=== PATIENT | female | born 1955 | race Caucasian/White ===

== ENCOUNTER 2017-09-08 06:06 | Outpatient (CLI) | payer SELFPAY ==
[~2017-09-08] VITALS: Ht 175.3 cm; Wt 93.9 kg
[~2017-09-08 06:06] MED LIST: ALBU17AE3 IH; ALN70T PO; ASP325T PO; ATEN25TA PO; ATR20T PO; BUDE6HFA IH; CIPR500S2 PO; CLIN-80 PO; DICL500C PO; FOLI10PO5 PO; FOLIC ACID PO; FURO40TA4 PO; HYDR1TAB PO; LEVO125T PO; LEVO175T2 PO; LRT10T PO; METR500T PO; MULT-418 PO; OMEP-10 PO; SRTR100T PO; SULF-222 PO; TRZ100T PO; VITA150T PO
[2017-09-08] MEDS ORDERED: TRAZ-28 PO (12:02)
[2017-09-08] MEDS ORDERED: GABA-488 PO (12:02)
[2017-09-08] MEDS ORDERED: FOLI1TAB24 PO (12:02)
[2017-09-08] MEDS ORDERED: MULT-178 PO (12:02)
[2017-09-08] MEDS ORDERED: BUDE10.2 IH (12:02)
[2017-09-08] MEDS ORDERED: FURO40TA4 PO (12:02)
[2017-09-08] MEDS ORDERED: RT-ALBUINH IH (12:02)
[2017-09-08] MEDS ORDERED: ATOR40TA70 PO (12:02)
[2017-09-08] MEDS ORDERED: ATEN25TA PO (12:02)
[2017-09-08] MEDS ORDERED: VITA150T PO (12:02)
[2017-09-08] MEDS ORDERED: OMEP20TA7 PO (12:02)
[2017-09-08] MEDS ORDERED: LEVO150T6 PO (12:02)
[2017-09-08] MEDS ORDERED: SUCR1TAB PO (12:05)
[2017-09-08] MEDS ORDERED: BETA1TAB12 PO (12:05)
[2017-09-08] MEDS ORDERED: POTA-51 PO (12:05)
[2017-09-08] MEDS ORDERED: CALC-902 PO (12:05)
[2017-09-08] MEDS ORDERED: ASPI-586 PO (12:05)
== END 2017-09-08 12:07 ==
LOC: PREOP 06:06
PROVIDERS: ATTEND Surgery
DX: Z01.818 Encounter for other preprocedural examination (principal); K62.5 Hemorrhage of anus and rectum; K21.9 Gastro-esophageal reflux disease without esophagitis; Z80.0 Family history of malignant neoplasm of digestive organs; Z86.010 Personal history of colon polyps

== ENCOUNTER 2017-09-14 10:31 | Day surgery (SDC) | payer OTHER ==
[~2017-09-14] VITALS: Ht 175.3 cm; Wt 93.9 kg
[~2017-09-14 10:31] MED LIST changes: +ASPI-586 PO; +ATOR40TA70 PO; +BETA1TAB12 PO; +BUDE10.2 IH; +CALC-902 PO; +FOLI1TAB24 PO; +GABA-488 PO; +LEVO150T6 PO; +MULT-178 PO; +OMEP20TA7 PO; +POTA-51 PO; +RT-ALBUINH IH; +SUCR1TAB PO; +TRAZ-28 PO
--- OUTSIDE RECORDS SUMMARY | 2017-09-14 10:35 | XMS REPORT | Continuity of Care Document ---
Author Author [facility] Organization [facility] Address Unknown Phone Unavailable Allergies Active Description Code Type Severity Reaction Onset Reported/Identified Relationship to Patient Clinical Status Yes No Known Drug Allergies [id number] Drug Allergy Unknown N/A 05/19/2011 Medications There is no data. Problems Date Dx Coded Attending Type Code Diagnosis Diagnosed By 05/20/2011 Ot 244.9 HYPOTHYROIDISM NOS 05/20/2011 Ot 276.52 HYPOVOLEMIA 05/20/2011 Ot 305.1 TOBACCO USE DISORDER 05/20/2011 Ot 401.9 HYPERTENSION NOS 05/20/2011 Ot 491.9 CHRONIC BRONCHITIS NOS 05/20/2011 Ot 530.81 ESOPHAGEAL REFLUX 05/20/2011 Ot 562.11 DIVERTICULITIS COLON (W/O MENT OF HEMORR 05/20/2011 Ot V45.77 ACQRD ABSENCE OF GENITAL ORGANS 11/30/2012 CITLALI CALVO, LIVAN Wang Ot 214.8 LIPOMA NEC 12/03/2012 PAUL JOHNSON Ot 682.3 CELLULITIS OF ARM 12/03/2012 PAUL JOHNSON Ot 682.4 CELLULITIS OF HAND 12/03/2012 PAUL JOHNSON Ot 729.81 SWELLING OF LIMB 12/03/2012 PAUL JOHNSON Ot V45.89 POSTSURGICAL STATES NEC 12/04/2012 WANG CALVO, LUCILLE Garcia Ot V58.31 ENCOUNTER FOR CHANGE OR REMOVAL OF SURGI 02/08/2013 LIVAN GODWIN MD Ot 728.87 MUSCLE WEAKNESS (GENERALIZED) 02/08/2013 LIVAN GODWIN MD Ot V45.89 POSTSURGICAL STATES NEC 02/08/2013 LIVAN GODWIN MD Ot V57.21 ENCOUNTER FOR OCCUPATIONAL THERAPY 09/04/2014 LIVAN GODWIN MD Ot 782.2 09/04/2014 LIVAN GODWIN MD Ot 782.2 09/04/2014 LIVAN GODWIN MD Ot V72.63 09/04/2014 LIVAN GODWIN MD Ot V74.8 09/04/2014 FABIO VENCES APRN Ot V76.12 09/04/2014 FABIO VENCES APRN Ot 733.00 01/11/2016 LIVAN GODWIN MD Ot 782.2 LOCAL SUPRFICIAL SWELLNG 01/11/2016 LIVAN GODWIN MD Ot 782.2 LOCAL SUPRFICIAL SWELLNG 01/11/2016 LIVAN GODWIN MD Ot V72.63 PRE-PROCEDURAL LABORATORY EXAMINATION 01/11/2016 LIVAN GODWIN MD Ot V74.8 SCREEN-BACTERIAL DIS NEC 01/11/2016 FABIO VENCES APRN Ot V76.12 OT SCREEN MAMMO-MALIGN NEOPLASM OF TWYLA 01/11/2016 FABIO VENCES APRN Ot 733.00 OSTEOPOROSIS NOS Procedures There is no data. Results There is no data. Encounters ACCT No. Visit Date/Time Discharge Status Pt. Type Provider Facility Loc./Unit Complaint [id number] 09/08/2017 06:06:00 09/08/2017 23:59:59 CLS Outpatient LIVAN GODWIN MD [facility] PREOP COLONOSCOPY/EGD [id number] 01/11/2016 11:44:00 01/11/2016 23:59:59 CLS Outpatient YG MONTEZ MD [facility] CARD [id number] 09/16/2013 19:34:00 09/19/2013 11:15:00 DIS Inpatient [id number] 07/15/2013 08:58:00 07/15/2013 23:59:59 CLS Outpatient FABIO VENCES APRN [facility] RAD [id number] 07/14/2013 10:33:00 07/14/2013 23:59:59 CLS Outpatient FABIO VENCES APRN [facility] RAD [id number] 01/17/2013 10:35:00 02/08/2013 15:02:00 DIS Outpatient LIVAN GODWIN MD [facility] REHAB [id number] 12/04/2012 18:38:00 12/04/2012 19:10:00 DIS Emergency WANG CALVO, LUCILLE Garcia [facility] ER [id number] 12/03/2012 12:47:00 12/03/2012 18:17:00 DIS Emergency PAUL JOHNSON [facility] ER [id number] 11/30/2012 10:31:00 11/30/2012 16:57:00 DIS Outpatient LIVAN GODWIN MD [facility] SDC [id number] 11/26/2012 10:44:00 11/26/2012 23:59:59 CLS Outpatient LIVAN GODWIN MD [facility] PREOP [id number] 10/20/2012 10:51:00 10/20/2012 23:59:59 CLS Outpatient LIVAN GODWIN MD [facility] RAD [id number] 09/14/2017 10:15:00 PEN Preadmit LIVAN GODWIN MD [facility] ENDO RECTAL BLEEDING/GERD/HX POLYPS/FAMILY HX COLON CA [id number] 05/19/2011 15:34:00 Document Registration
[2017-09-14] MEDS ORDERED: NS IV 500 ML 500 ML ONE ×2 (10:50→12:15)
[2017-09-14 11:00] VITALS: BP 102/76
[2017-09-14] MEDS: NS IV 500 ML 500 ML IV PRN ×2 (11:00→12:40)
[2017-09-14] MEDS ORDERED: MIDAZOLAM 2 MG/2 ML (VERSED) VIAL ONE ×4 (11:49→12:46)
[2017-09-14] MEDS ORDERED: fentaNYL INJECTION 100 MCG/2 ML AMP ONE (11:50)
[2017-09-14] MEDS: fentaNYL INJECTION 100 MCG/2 ML AMP IVP PRN ×2 (12:25→12:37)
[2017-09-14] MEDS: MIDAZOLAM 2 MG/2 ML (VERSED) VIAL IVP PRN ×4 (12:27→12:40)
--- NOTE | 2017-09-14 12:30 | History & Physicial ---
History of Present Illness History of Present Illness Reason for visit/HPI to undergo an upper endoscopy regarding symptoms of reflux disease and concomitant colonoscopy to investigate rectal bleeding. Reports a personal history of polyps 10 years ago and a family history of colon cancer in her maternal cousins. Date of Admission 09/14/17 Date Seen by Provider: Sep 14, 2017 Time Seen by Provider: 12:29 I consulted on this patient on 09/14/17 12:28 Attending Physician Livan Godwin MD Admitting Physician Demetri Tay MD Consult Allergies and Home Medications Allergies Coded Allergies: No Known Drug Allergies (Unverified , 05/19/11) Home Medications Albuterol Sulfate 6.7 Gm Hfa.aer.ad, 2 PUFF IH Q6H PRN for SHORTNESS OF BREATH, (Reported) Aspirin 81 Mg Tablet.dr, 81 MG PO DAILY, (Reported) Atenolol 25 Mg Tablet, 25 MG PO BID, (Reported) Atorvastatin Calcium 40 Mg Tablet, 40 MG PO HS, (Reported) Beta-Carotene(A) W-C & E/Min 1 Each Tablet, 1 TAB PO DAILY, (Reported) Budesonide/Formoterol Fumarate 10.2 Gm Hfa.aer.ad, 2 PUFF IH BID, (Reported) Calcium Carbonate/Vitamin D3 1 Each Tablet, 1 TAB PO DAILY, (Reported) Folic Acid 1 Mg Tablet, 1 MG PO DAILY, (Reported) Furosemide 40 Mg Tablet, 40 MG PO DAILY, (Reported) Gabapentin 300 Mg Capsule, 300 MG PO HS, (Reported) Levothyroxine Sodium 150 Mcg Tablet, 150 MCG PO DAILY, (Reported) Omeprazole 20 Mg Tablet.dr, 20 MG PO DAILY, (Reported) Potassium Chloride 20 Meq Tablet.er, 20 MEQ PO DAILY, (Reported) Sucralfate 1 Gm Tablet, 1 GM PO DAILY, (Reported) Trazodone HCl 50 Mg Tablet, 100 MG PO HS, (Reported) take 2 (50mg) tabs Vitamin B Complex & Vit C No.4 150 Mg Tablet, 150 MG PO DAILY, (Reported) Patient Home Medication List Home Medication List Reviewed: Yes Past Lwzkksl-Cgtaep-Etpgin Hx Patient Social History Marrital Status: Employed/Student: retired Alcohol Use: Denies Use Recreational Drug Use: No Smoking Status: Current Everyday Smoker Type Used: Cigarettes Recent Foreign Travel: No Contact w/other who traveled: No Recent Hopitalizations: No Recent Infectious Disease Expo: No Immunizations Up To Date Tetanus Booster (TDap): Unknown Pediatric: No Seasonal Allergies Seasonal Allergies: Yes Surgeries Yes Appendectomy, Section, Gallbladder, Hysterectomy Reproductive System Hx Reproductive Disorders: No Female Reproductive Disorders: Denies ASSISTANT CREDIT MANAGER History: Hysterectomy Gastrointestinal Yes Gastroesophageal Reflux, Diverticulosis, Polyps Musculoskeletal Yes Osteoporosis, Arthritis Endocrine Endocrine Disorders: Hypothyroidsim HEENT Loss of Vision: Denies Hearing Impairment: Denies Cancer Cervical Psychosocial Behavioral Health Disorders: Anxiety Family Medical History Significant Family History: No Pertinent Family Hx Family Hx: Cancer 03 FATHER, Onset:Unknown Family history: Cardiovascular disease 03 FATHER, Onset:Unknown 03 MOTHER, Onset:Unknown Family history: Thyroid disorder 03 MOTHER, Onset:Unknown Tuberculosis 03 FATHER, Onset:Unknown Constitutional: no symptoms reported EENTM: no symptoms reported Respiratory: no symptoms reported Cardiovascular: no symptoms reported Gastrointestinal: see HPI Genitourinary: no symptoms reported Musculoskeletal: no symptoms reported Skin: no symptoms reported Psychiatric/Neurological: No Symptoms Reported Physical Exam Vital Signs Vital Signs - First Documented 09/14/17 11:00 Temp 99.3 Pulse 64 Resp 18 B/P (MAP) 102/76 (85) Pulse Ox 92 O2 Delivery Room Air Capillary Refill : General Appearance: No Apparent Distress Neck: Normal Inspection Respiratory: Lungs Clear Cardiovascular: Regular Rate, Rhythm Gastrointestinal: Non Tender, Soft Rectal: Deferred Extremity: Normal Inspection Neurologic/Psychiatric: Alert, Oriented x3 Skin: Warm/Dry Assessment/Plan Assessment and Plan lady with symptoms of reflux and a personal history of polyps. For EGD with colonoscopy Problems: Admission Diagnosis Admission Status: Other (Outpt Proc) LIVAN GODWIN MD Sep 14, 2017 12:30 pm
--- NOTE | 2017-09-14 12:31 | Conscious Sedation/ASA ---
Conscious Sedation Pre-Proced Time Reviewed: 12:30 ASA Class: 2 Airway Mallampati Classification: (wales appropriate class) I. II. III, IV Lungs Heart ASA score ASA 1: a normal healthy patient ASA 2: a patient with a mild systemic disease (mid diabetes, controlled hypertension, obesity ASA 3: a patient with a severe systemic disease that limits activity (angina , COPD, prior Myocardial infarction) ASA 4: a patient with an incapacitating disease that is a constant threat to life (CHF, renal failure) ASA 5: a moribund patient not expected to survive 24 hrs. (ruptured aneurysm) ASA 6: a declared brain patient whose organs are being harvested. For emergent operations, add the letter E after the classification Grade 2 Sedation Plan: Discussed options with patient/fam Note The patient is an appropriate candidate to undergo the planned procedure, sedation, and anesthesia. The patient immediately re-assessed prior to indication. LIVAN GODWIN MD Sep 14, 2017 12:31 pm
[2017-09-14 13:20] VITALS: BP 96/62
[2017-09-14] MEDS ORDERED: HURRICAINE EXT TUBE (BENZOCAINE) XX ONE (13:30)
[2017-09-14 13:50] VITALS: BP 102/74
--- NOTE | 2017-09-14 14:16 | Endo Procedure Record ---
Endo Procedure Report Date of Procedure Last Colonoscopy: Yes (10 YEARS AGO) Sep 14, 2017 Surgeon (s) LIVAN GODWIN MD Post Procedure/Op Diagnosis EGD: Esophagitis, gastric erosions and gastritis Colonoscopy: Multiple polyps. Sigmoid diverticulosis Procedure Performed EGD with antral biopsy for H. pylori Colonoscopy to cecum Snare polypectomy 5 Description of Procedure Anesthesia Type: Conscious Sedation Specimen(s) collected/removed colon polyps Description of the Procedure Indication for the procedures: This lady came in for an upper endoscopy to evaluate symptoms of reflux disease and for surveillance colonoscopy. In addition, she reported rectal bleeding and a positive family history of colon cancer Informed consent was obtained after reviewing the procedures in detail. Description of procedures: EGD/antral biopsy: She was placed in left lateral decubitus position and her vital signs were monitored. Conscious sedation was achieved using Versed and fentanyl. The flexible gastroscope was introduced down the esophagus, past the stomach, into the proximal duodenum. Findings: Esophagus: Hiatus hernia with grade 2 esophagitis. Stomach: Multiple distal gastric erosions and severe distal gastritis with found. Biopsy for H. pylori was obtained Duodenum: Normal She tolerated the procedure well and was turned around in preparation for colonoscopy. Impression: Symptoms of reflux disease. Esophagitis and gastric tic erosions. H. pylori status pending Colonoscopy/polypectomy: Digital rectal examination was unremarkable. The colonoscope was then introduced into the rectum and advanced all the way up to the cecum. The scope was then withdrawn slowly and the mucosa examined in a systematic fashion. Findings: 1. A total of 3 polyps, 2 mm each, adjacent to each other involving the mid sigmoid colon. These were snared and retrieved, being sent as one specimen 2. Quite severe sigmoid diverticulosis 3. 2 mm polyp at the descending colon that was snared and retrieved 4. 2 mm polyp at the proximal transverse colon that was snared and retrieved She tolerated the procedures well and was taken back to the nursing area in a stable condition. Impression: Previous history of polyps. In intermittent rectal bleeding. Multiple polyps excised. Recommend repeating 2 years. Copies To: HOLLY ASKEW MD,LIVAN Wang MD Sep 14, 2017 2:16 pm
--- NOTE | 2017-09-14 14:17 | Discharge Inst-Simple/Standard ---
Discharge Inst-Standard Discharge Medications New, Converted or Re-Newed RX: Other Patient Instructions/Follow Up Plan of Care/Instructions/FU: Repeat colonoscopy in 2 years. Follow up with her primary Activity as Tolerated: Yes Discharge Diet: No Restrictions LIVAN GODWIN MD Sep 14, 2017 2:17 pm
== END 2017-09-14 14:50 | disposition home or self-care (01) ==
LOC: ENDO 10:31
PROVIDERS: ATTEND Surgery
DX: K20.9 Esophagitis, unspecified (principal); D12.4 Benign neoplasm of descending colon; D12.3 Benign neoplasm of transverse colon; K63.5 Polyp of colon; K57.30 Diverticulosis of large intestine without perforation or abscess without bleeding; K25.9 Gastric ulcer, unspecified as acute or chronic, without hemorrhage or perforation; K29.70 Gastritis, unspecified, without bleeding; M81.0 Age-related osteoporosis without current pathological fracture; E03.9 Hypothyroidism, unspecified; F41.9 Anxiety disorder, unspecified; Z80.0 Family history of malignant neoplasm of digestive organs; F17.210 Nicotine dependence, cigarettes, uncomplicated; Z79.899 Other long term (current) drug therapy

== ENCOUNTER → 2017-10-14 | Outpatient (CLI) | payer OTHER ==
[~2017-10-14] MED LIST changes: +RT-ALBUTEROL SULF 2.5 MG/3 ML PRE-MIX VIAL INH ONE; +RT-ALBUTEROL SULF 2.5 MG/3 ML PRE-MIX VIAL ONE
== END ==
LOC: RT 12:51
PROVIDERS: ATTEND Nurse Practitioner Family
DX: J44.9 Chronic obstructive pulmonary disease, unspecified (principal); R06.09 Other forms of dyspnea; Z72.0 Tobacco use
CPT/HCPCS: 94060; 94726; 94729

== ENCOUNTER → 2017-10-28 | Outpatient (CLI) | payer OTHER ==
[~2017-10-28] MED LIST changes: -RT-ALBUTEROL SULF 2.5 MG/3 ML PRE-MIX VIAL INH ONE; -RT-ALBUTEROL SULF 2.5 MG/3 ML PRE-MIX VIAL ONE
--- NOTE | 2017-10-28 18:15 | Diagnostic Imaging Report ---
CLINICAL INDICATION: Patient with pain in the left breast. Patient also states baseline exam. Patient is tobacco user. EXAM: Chest x-ray PA and lateral views. COMPARISONS: None. FINDINGS: Lungs/pleura: There are slightly hyperinflated lungs, increased retrosternal clear space, and flattened hemidiaphragms which can be seen with COPD changes. Lungs are clear. There is no pneumothorax. There is no pleural effusion. Mediastinum: Unremarkable. Pulmonary vasculature: Unremarkable. Heart: Unremarkable. Bones/extrathoracic soft tissue: There are mildly hypertrophic degenerative osteophytes scattered throughout the thoracic spine. IMPRESSION: 1: There is no radiographic evidence of acute cardiopulmonary process. 2: COPD lung changes. Dictated by: Dictated on workstation # [id number]
== END ==
LOC: RAD 14:15
PROVIDERS: ATTEND Nurse Practitioner Family
DX: J44.9 Chronic obstructive pulmonary disease, unspecified (principal); N64.4 Mastodynia; Z72.0 Tobacco use
CPT/HCPCS: 71046

== ENCOUNTER → 2018-05-26 | Outpatient (CLI) | payer SELFPAY ==
[~2018-05-26] MED LIST changes: +TRAZ-189 PO; -TRAZ-28 PO
--- NOTE | 2018-05-26 10:56 | Diagnostic Imaging Report ---
EXAMINATION: CT low-dose lung cancer screening. INDICATION: 70+ pack year smoking history. COMPARISON: There are no prior CT chest examinations available for comparison. The plain film examination of the chest performed on 10/28/2017 noted chronic pulmonary changes but failed to show any evidence for an acute abnormality. FINDINGS: There is a 0.8 x 1.5 cm triangular soft tissue density in the left costophrenic angle (Image 257 of 303). This finding was not present on the prior CT abdomen/pelvis exam of 05/19/2011. I suspect this density is more likely due to chronic atelectasis/scar formation than to neoplasm. If further imaging is desired, then a PET/CT would be recommended. If the PET/CT exam is not performed, then a short-term (3 month) followup CT chest exam should be obtained. There is also a small 0.3 x 0.7 cm parenchymal density in the left apex (image 24 of 303). This finding is most likely benign. No other parenchymal lung nodule is identified. There is a faint patchy alveolar/interstitial infiltrate in the anterior aspect of the right middle lobe. This may well be chronic in nature. The possibility that this is related to mild acute pneumonia/atelectasis should also be considered. There are mild emphysematous changes involving both lungs. The heart size is within normal limits. Coronary artery calcifications are evident. The aorta is not abnormally dilated. There is no obvious mediastinal or hilar adenopathy. The thyroid gland was not well visualized. There is no definite breast mass identified. According to our records, the patient has not had a mammogram since 2013. If the patient has had a recent (within 1 year) mammogram elsewhere, then no further imaging would be necessary; however, if the patient has not had a recent mammogram, then mammography would be recommended for further study. The sections through the upper abdomen show that both the liver and spleen are prominent but similar to the prior study. The bone windows show no evidence for a fracture or for a destructive lesion. IMPRESSION: 1. There is a 0.8 x 1.5 cm parenchymal nodule in the left lung base. This finding is more likely due to chronic atelectasis/scar formation than to neoplasm. Recommendations as above. 2. There is also a subcentimeter nodule in the left upper lung. I suspect that this is benign. 3. There is a question of mild pneumonia/atelectasis involving the right middle lobe. Clinical followup is recommended. 4. There are chronic pulmonary changes evident. 5. There is coronary artery disease. 6. Both the liver and spleen are prominent but similar in appearance to the prior exam from 2011. LUNG-RADS CATEGORY: 4a. MODIFIER: OTHER SIGNIFICANT FINDINGS: Dictated by: Dictated on workstation # [id number]
== END ==
LOC: RAD 09:14
PROVIDERS: ATTEND Nurse Practitioner Family
DX: Z12.2 Encounter for screening for malignant neoplasm of respiratory organs (principal); I25.10 Atherosclerotic heart disease of native coronary artery without angina pectoris; J44.9 Chronic obstructive pulmonary disease, unspecified; J30.9 Allergic rhinitis, unspecified; R91.8 Other nonspecific abnormal finding of lung field; F17.210 Nicotine dependence, cigarettes, uncomplicated

== ENCOUNTER 2018-06-10 05:25 | Outpatient (CLI) | payer OTHER ==
[~2018-06-10] VITALS: Ht 175.3 cm; Wt 78.5 kg
[2018-06-10] MEDS ORDERED: CETI10TA20 PO (12:41)
[2018-06-10] MEDS ORDERED: TIOT18CA2 IH (12:41)
[2018-06-10] MEDS ORDERED: VITA1CAP PO (12:41)
[2018-06-10] MEDS ORDERED: FLUT9.9S NS (12:41)
== END 2018-06-10 12:42 | disposition home or self-care (01) ==
LOC: PREOP 05:25
PROVIDERS: ATTEND Internal Medicine Critical Care Medicine
DX: Z01.818 Encounter for other preprocedural examination (principal)

== ENCOUNTER 2018-06-17 06:47 | Day surgery (SDC) | payer OTHER ==
[~2018-06-17] VITALS: Ht 175.3 cm; Wt 78.5 kg
[~2018-06-17 06:47] MED LIST changes: +CETI10TA20 PO; +FLUT9.9S NS; +TIOT18CA2 IH; +VITA1CAP PO
[2018-06-17] MEDS ORDERED: LIDOCAINE PF 2% 5 ML (XYLOCAINE) VIAL INJ ONE (06:48)
[2018-06-17] MEDS ORDERED: LIDOCAINE 2% 20 ML (XYLOCAINE) VIAL INJ ONE (06:48)
[2018-06-17] MEDS ORDERED: LIDOCAINE PF 1% 2 ML AMP IJ ONE (06:48)
--- OUTSIDE RECORDS SUMMARY | 2018-06-17 06:53 | XMS REPORT | Continuity of Care Document ---
Author Author [facility] Organization [facility] Address Unknown Phone Unavailable Care Team Providers Care Clinical Nursing Professor Name Role Phone LIVAN GODWIN MD PP Insurance Providers Payer Name Policy Number Subscriber Name Relationship Self Pay Tawny Mejia 01 Self / Same As Patient Advance Directives Directive Response Recorded Date Advance Directives N 12/04/12 6:40pm Health Care Power of Watch Assembly Inspector N 12/03/12 1:10pm Organ Donor N 12/03/12 1:10pm Problems No Known Problems or Medical conditions. Family History History Response Recorded Date/Time Hx Family Cancer Y dad had lukemia 4:00pm Hx Family Cardiac Disorders Y mother has a fib 05/19/11 4:00pm Social History History Response Recorded Date/Time Alcohol Use Denies Use 12/04/12 6:40pm Recreational Drug Use N 12/04/12 6:40pm Allergies, Adverse Reactions, Alerts Allergen Type Severity Reaction Last Updated No Known Drug Allergies 05/19/11 Medications Medication Dose Units Route Sig Qty Days Trimethoprim/Sulfamethoxazole (Bactrim Ds) 1 Ea PO BID 10 Dicloxacillin Sodium 1 Each PO Q6HR 10 Acetaminophen/Hydrocodone Bitart (Vicodin 5-500 Tablet) 1 - 2 Each PO Q4HR PRN Vitamin B Complex & Vit C No.4 (Super B Complex) 150 Mg PO DAILY [Folic Acid] 1 Tab PO DAILY Albuterol (Proventil) 2 Puff IH Q4H PRN SOB Budesonide/Formoterol Fumarate (Symbicort 160-4.5 Mcg Inhaler) 2 Puff IH BID Trazodone HCl (Desyrel 100 Mg) 100 Mg PO HS Levothyroxine Sodium (Synthroid) 125 Mcg PO DAILY Aspirin (Aspirin 325 Mg Tab) 325 Mg PO DAILY Omeprazole (Prilosec 20 Mg) 20 Mg PO DAILY Multivitamin (Vitamin Brittney Chew) 1 Tab PO DAILY Atenolol (Tenormin 25 Mg) 25 Mg PO BID Furosemide 40 Mg PO DAILY Metronidazole (Flagyl 500 Mg) 1 Each PO TID 8 Ciprofloxacin (Cipro) 500 Mg PO BID 8 Vitamin B Complex & Vit C No.4 (Super B Complex) 150 Mg PO Sertraline HCl (Zoloft) 100 Mg PO DAILY Folic Acid 20 Gm PO DAILY Response Recorded Date/Time Status not known Unknown Results Test Date Result Interp. Ref. Range Alanine Aminotransferase (ALT/SGPT) May 20, 2011 4: 58am 29 U/L L 30-65 Albumin May 20, 2011 4:58am 2.7 G/ DL L 3.4-5.0 Alkaline Phosphatase May 20, 2011 4:58am 127 U/L N 50-136 Amylase Level May 20, 2011 4:58am 32 U/L N 25-115 Aspartate Amino Transf (AST/SGOT) May 20, 2011 4:58am 17 U/L N 15-37 BUN/Creatinine Ratio November 26, 2012 11:29am 9 - Basophils # (Auto) December 03, 2012 4:40pm 0.0 10^3/uL N 0.0-0.1 Basophils (%) (Auto) December 03, 2012 4:40pm 1 % N 0-10 Blood Urea Nitrogen November 26, 2012 11:29am 7 MG/DL N 7-18 C-Reactive Protein December 03, 2012 4:40pm 1.4 MG/DL H 0.2-0.9 Calcium Level November 26, 2012 11:29am 10.1 MG/DL N 8.5-10.1 Carbon Dioxide Level November 26, 2012 11:29am 30 MMOL/L N 21-32 Chloride Level November 26, 2012 11:29am 97 MMOL/L L 101-110 Creatinine November 26, 2012 11:29am 0.8 MG/ DL N 0.6-1.3 Eosinophils # (Auto) December 03, 2012 4:40pm 0.1 10^3/uL N 0.0-0.3 Eosinophils (%) (Auto) December 03, 2012 4:40pm 2 % N 0-10 Glucose Level November 26, 2012 11:29am 110 MG/DL H 74-106 Hematocrit December 03, 2012 4:40pm 44 % N 35-52 Hemoglobin December 03, 2012 4:40pm 15.4 G/ DL N 11.5-16.0 Lipase May 20, 2011 4:58am 67 U/L L 73-393 Lymphocytes # (Auto) December 03, 2012 4:40pm 1.8 X 10^3 N 1.0-4.0 Lymphocytes (%) (Auto) December 03, 2012 4:40pm 30 % N 12-44 Mean Corpuscular Hemoglobin December 03, 2012 4:40pm 31 PG N 25-34 Mean Corpuscular Hemoglobin Concent December 03, 2012 4:40pm 35 G/DL N 32-36 Mean Corpuscular Volume December 03, 2012 4:40pm 91 FL N 80-99 Mean Platelet Volume December 03, 2012 4:40pm 9.7 FL N 7.4-10.4 Monocytes # (Auto) December 03, 2012 4:40pm 0.5 X 10^3 N 0.0-1.0 Monocytes (%) (Auto) December 03, 2012 4:40pm 8 % N 0-12 Neutrophils # (Auto) December 03, 2012 4:40pm 3.5 X 10^3 N 1.8-7.8 Neutrophils (%) (Auto) December 03, 2012 4:40pm 58 % N 42-75 Platelet Count December 03, 2012 4:40pm 152 10^3/uL N 130-400 Potassium Level November 26, 2012 11:29am 3.4 MMOL/L L 3.6-5.0 Red Blood Count December 03, 2012 4:40pm 4.90 10^6/uL N 4.35-5.85 Red Cell Distribution Width December 03, 2012 4:40pm 13.2 % N 10.0-14.5 Sodium Level November 26, 2012 11:29am 133 MMOL/L L 135-145 Total Bilirubin May 20, 2011 4:58am 1.1 MG/DL H 0.0-1.0 Total Protein May 20, 2011 4:58am 6.7 G/DL N 6.4-8.2 Urine Amorphous Sediment May 19, 2011 12:31pm FEW UNRULY URATES H - Urine Bacteria May 19, 2011 12:31pm NEGATIVE - Urine Bilirubin May 19, 2011 12:31pm NEGATIVE - Urine Casts May 19, 2011 12:31pm NONE - Urine Clarity May 19, 2011 12:31pm CLEAR - Urine Color May 19, 2011 12:31pm YELLOW - Urine Crystals May 19, 2011 12:31pm NONE - Urine Culture Indicated May 19, 2011 12:31pm NO - Urine Glucose (UA) May 19, 2011 12:31pm NEGATIVE - Urine Ketones May 19, 2011 12:31pm NEGATIVE - Urine Leukocyte Esterase May 19, 2011 12:31pm TRACE H - Urine Mucus May 19, 2011 12:31pm NEGATIVE - Urine Nitrite May 19, 2011 12:31pm NEGATIVE - Urine Protein May 19, 2011 12:31pm NEGATIVE - Urine RBC May 19, 2011 12:31pm NONE /HPF - Urine Specific Mineral May 19, 2011 12:31pm 1.010 L - Urine Squamous Epithelial Cells May 19, 2011 12:31pm 2-5 - Urine Urobilinogen May 19, 2011 12:31pm 8 MG/DL H - Urine WBC May 19, 2011 12:31pm RARE /HPF - Urine pH May 19, 2011 12:31pm 7.0 - White Blood Count December 03, 2012 4:40pm 6.0 10^3/uL N 4.3-11.0 Estimat Glomerular Filtration Rate November 26, 2012 11:29am > 60 - Urine RBC (Auto) May 19, 2011 12:31pm NEGATIVE - Procedures Procedure Code Date EXC FOREARM SAM DEEP 3 CM/> [id number] MRSA Screen 11/26/12 Encounters Encounter Location Date/Time Departed Emergency Room [facility] 6:38pm Discharged Inpatient [facility] 3:34pm
--- OUTSIDE RECORDS SUMMARY | 2018-06-17 06:53 | XMS REPORT | Continuity of Care Document ---
Author Author [facility] Organization [facility] Address Unknown Phone Unavailable Care Team Providers Care Sheet Metal Worker Apprentice Name Role Phone HOLLY ASKEW MD PP Insurance Providers Payer Name Policy Number Subscriber Name Relationship Self Pay Tawny Mejia 01 Self / Same As Patient Advance Directives Directive Response Recorded Date Advance Directives N 12/03/12 1:10pm Health Care Power of Social Media Marketing Specialist N 12/03/12 1:10pm Organ Donor N 12/03/12 1:10pm Problems No Known Problems or Medical conditions. Family History History Response Recorded Date/Time Hx Family Cancer Y dad had lukemia 4:00pm Hx Family Cardiac Disorders Y mother has a fib 05/19/11 4:00pm Social History History Response Recorded Date/Time Alcohol Use Denies Use 12/03/12 1:10pm Recreational Drug Use N 12/03/12 1:10pm Allergies, Adverse Reactions, Alerts Allergen Type Severity [...] Recorded Date/Time Status not known Unknown Results No Known Relevant Diagnostic Tests, Laboratory Data and/or Discharge Summary. Procedures Procedure Code Date EXC FOREARM SAM DEEP 3 CM/> [id number] Encounters Encounter Location Date/Time Departed Emergency Room [facility] 12:47pm Discharged Inpatient [facility] 3:34pm
--- OUTSIDE RECORDS SUMMARY | 2018-06-17 06:53 | XMS REPORT | Continuity of Care Document ---
Author Author [facility] Organization [facility] Address Unknown Phone Unavailable Allergies Active Description Code Type Severity Reaction Onset Reported/Identified Relationship to Patient Clinical Status Yes No Known Drug Allergies [id number] Drug Allergy Unknown N/A 05/19/2011 Medications There [...] 09/04/2014 LIVAN GODWIN MD Ot V72.63 09/04/2014 CITLALI CALVO, LIVAN Wang Ot V74.8 09/04/2014 VANGIE, FABIO A FITNESS AND WELLNESS INSTRUCTOR Ot V76.12 09/04/2014 VANGIE, FABIO A FITNESS AND WELLNESS INSTRUCTOR Ot 733.00 01/11/2016 CITLALI CALVO, LIVAN Wang Ot 782.2 LOCAL SUPRFICIAL SWELLNG 01/11/2016 LIVAN GODWIN MD Ot 782.2 LOCAL SUPRFICIAL SWELLNG 01/11/2016 CITLALI CALVO, LIVAN Wang Ot V72.63 PRE-PROCEDURAL LABORATORY EXAMINATION 01/11/2016 CITLALI CALVO, LIVAN Wang Ot V74.8 SCREEN-BACTERIAL DIS NEC 01/11/2016 VANGIE, FABIO A FITNESS AND WELLNESS INSTRUCTOR Ot V76.12 OTH SCREEN MAMMO-MALIGN NEOPLASM OF [place] 01/11/2016 VANGIEFABIO CHEN FITNESS AND WELLNESS INSTRUCTOR Ot 733.00 OSTEOPOROSIS NOS 09/08/2017 LIVAN GODWIN MD Ot 782.2 LOCAL SUPRFICIAL SWELLNG 09/08/2017 LIVAN GODWIN MD Ot 782.2 LOCAL SUPRFICIAL SWELLNG 09/08/2017 LIVAN GODWIN MD Ot V72.63 PRE-PROCEDURAL LABORATORY EXAMINATION 09/08/2017 CITLALI CALVO, LIVAN Wang Ot V74.8 SCREEN-BACTERIAL DIS NEC 09/08/2017 VANGIE, FABIO A FITNESS AND WELLNESS INSTRUCTOR Ot V76.12 OTH SCREEN MAMMO-MALIGN NEOPLASM OF [place] 09/08/2017 FABIO VENCES FITNESS AND WELLNESS INSTRUCTOR Ot 733.00 OSTEOPOROSIS NOS 09/08/2017 MELIDA CALVO, YG Cormier Ot R07.9 CHEST PAIN, UNSPECIFIED 09/08/2017 LIVAN GODWIN MD Ot K21.9 GASTRO-ESOPHAGEAL REFLUX DISEASE WITHOUT 09/08/2017 LIVAN GODWIN MD Ot K62.5 HEMORRHAGE OF ANUS AND RECTUM 09/08/2017 LIVAN GODWIN MD Ot Z01.818 ENCOUNTER FOR OTHER PREPROCEDURAL EXAMIN 09/08/2017 LIVAN GODWIN MD Ot Z80.0 FAMILY HISTORY OF MALIGNANT NEOPLASM OF 09/08/2017 LIVAN GODWIN MD Ot Z86.010 PERSONAL HISTORY OF COLONIC POLYPS 09/14/2017 LIVAN GODWIN MD Ot 782.2 LOCAL SUPRFICIAL SWELLNG 09/14/2017 LIVAN GODWIN MD Ot 782.2 LOCAL SUPRFICIAL SWELLNG 09/14/2017 LIVAN GODWIN MD Ot V72.63 PRE-PROCEDURAL LABORATORY EXAMINATION 09/14/2017 LIVAN GODWIN MD Ot V74.8 SCREEN-BACTERIAL DIS NEC 09/14/2017 VANGIE, FABIO A FITNESS AND WELLNESS INSTRUCTOR Ot V76.12 OTH SCREEN MAMMO-MALIGN NEOPLASM OF [place] 09/14/2017 VANGIEFABIO CHEN FITNESS AND WELLNESS INSTRUCTOR Ot 733.00 OSTEOPOROSIS NOS 09/14/2017 MELIDA CALVO, YG Cormier Ot R07.9 CHEST PAIN, UNSPECIFIED 09/14/2017 LIVAN GODWIN MD Ot D12.3 BENIGN NEOPLASM OF TRANSVERSE COLON 09/14/2017 LIVAN GODWIN MD Ot D12.4 BENIGN NEOPLASM OF DESCENDING COLON 09/14/2017 LIVAN GODWIN MD Ot E03.9 HYPOTHYROIDISM, UNSPECIFIED 09/14/2017 LIVAN GODWIN MD Ot F17.210 NICOTINE DEPENDENCE, CIGARETTES, UNCOMPL 09/14/2017 LIVAN GODWIN MD Ot F41.9 ANXIETY DISORDER, UNSPECIFIED 09/14/2017 LIVAN GODWIN MD Ot K20.9 ESOPHAGITIS, UNSPECIFIED 09/14/2017 LIVAN GODWIN MD Ot K25.9 GASTRIC ULCER, UNSP ACUTE OR CHRONIC, 09/14/2017 LIVAN GODWIN MD Ot K29.70 GASTRITIS, UNSPECIFIED, WITHOUT BLEEDING 09/14/2017 LIVAN GODWIN MD Ot K57.30 DVRTCLOS OF LG INT W/O PERFORATION OR AB 09/14/2017 LIVAN GODWIN MD Ot K63.5 POLYP OF COLON 09/14/2017 LIVAN GODWIN MD Ot M81.0 AGE-RELATED OSTEOPOROSIS W/O CURRENT PAT 09/14/2017 LIVAN GODWIN MD Ot Z79.899 OTHER DRIVER/GUIDE (CURRENT) DRUG THERAPY 09/14/2017 LIVAN GODWIN MD Ot Z80.0 FAMILY HISTORY OF MALIGNANT NEOPLASM OF 09/16/2017 LIVAN GODWIN MD Ot D12.3 BENIGN NEOPLASM OF TRANSVERSE COLON 09/16/2017 GODWIN MD, LIVAN M Ot D12.4 BENIGN NEOPLASM OF DESCENDING COLON 09/16/2017 CITLALI CALVO, LIVAN Wang Ot E03.9 HYPOTHYROIDISM, UNSPECIFIED 09/16/2017 CITLALI CALVO, LIVAN Wang Ot F17.210 NICOTINE DEPENDENCE, CIGARETTES, UNCOMPL 09/16/2017 LIVAN GODWIN MD Ot F41.9 ANXIETY DISORDER, UNSPECIFIED 09/16/2017 LIVAN GODWIN MD Ot K20.9 ESOPHAGITIS, UNSPECIFIED 09/16/2017 LIVAN GODWIN MD Ot K25.9 GASTRIC ULCER, UNSP ACUTE OR CHRONIC, 09/16/2017 LIVAN GODWIN MD Ot K29.70 GASTRITIS, UNSPECIFIED, WITHOUT BLEEDING 09/16/2017 LIVAN GODWIN MD Ot K57.30 DVRTCLOS OF LG INT W/O PERFORATION OR AB 09/16/2017 LIVAN GODWIN MD Ot K63.5 POLYP OF COLON 09/16/2017 LIVAN GODWIN MD Ot M81.0 AGE-RELATED OSTEOPOROSIS W/O CURRENT PAT 09/16/2017 LIVAN GODWIN MD Ot Z79.899 OTHER DRIVER/GUIDE (CURRENT) DRUG THERAPY 09/16/2017 LIVAN GODWIN MD Ot Z80.0 FAMILY HISTORY OF MALIGNANT NEOPLASM OF 09/23/2017 CITLALI CALVO, LIVAN Wang Ot D12.3 BENIGN NEOPLASM OF [place] COLON 09/23/2017 LIVAN GODWIN MD Ot D12.4 BENIGN NEOPLASM OF DESCENDING COLON 09/23/2017 LIVAN GODWIN MD Ot E03.9 HYPOTHYROIDISM, UNSPECIFIED 09/23/2017 CITLALI CALVO, LIVAN Wang Ot F17.210 NICOTINE DEPENDENCE, CIGARETTES, UNCOMPL 09/23/2017 LIVAN GODWIN MD Ot F41.9 ANXIETY DISORDER, UNSPECIFIED 09/23/2017 LIVAN GODWIN MD Ot K20.9 ESOPHAGITIS, UNSPECIFIED 09/23/2017 LIVAN GODWIN MD Ot K25.9 GASTRIC ULCER, UNSP ACUTE OR CHRONIC, 09/23/2017 LIVAN GODWIN MD Ot K29.70 GASTRITIS, UNSPECIFIED, WITHOUT BLEEDING 09/23/2017 LIVAN GODWIN MD Ot K57.30 DVRTCLOS OF LG INT W/O PERFORATION OR AB 09/23/2017 LIVAN GODWIN MD Ot K63.5 POLYP OF COLON 09/23/2017 CITLALI CALVO, LIVAN Wang Ot M81.0 AGE-RELATED OSTEOPOROSIS W/O CURRENT PAT 09/23/2017 CITLALI CALVO, LIVAN Wang Ot Z79.899 OTHER CORRECTION (CURRENT) DRUG THERAPY 09/23/2017 CITLALI CALVO, LIVAN Wang Ot Z80.0 FAMILY HISTORY OF MALIGNANT NEOPLASM OF 10/15/2017 CYNTHIA SHIV E FITNESS AND WELLNESS INSTRUCTOR Ot J44.9 CHRONIC OBSTRUCTIVE PULMONARY DISEASE, U 10/15/2017 CYNTHIA SHIV E FITNESS AND WELLNESS INSTRUCTOR Ot R06.09 OTHER FORMS OF DYSPNEA 10/15/2017 CYNTHIA SHIV E FITNESS AND WELLNESS INSTRUCTOR Ot Z72.0 TOBACCO USE 10/15/2017 CYNTHIA SHIV E FITNESS AND WELLNESS INSTRUCTOR Ot J44.9 CHRONIC OBSTRUCTIVE PULMONARY DISEASE, U 10/15/2017 CYNTHIA SHIV E FITNESS AND WELLNESS INSTRUCTOR Ot R06.09 OTHER FORMS OF DYSPNEA 10/15/2017 CYNTHIA, SHIV E FITNESS AND WELLNESS INSTRUCTOR Ot Z72.0 TOBACCO USE 10/16/2017 CYNTHIADEBORAHSHIV E FITNESS AND WELLNESS INSTRUCTOR Ot J44.9 CHRONIC OBSTRUCTIVE PULMONARY DISEASE, U 10/16/2017 CYNTHIA, SHIV E FITNESS AND WELLNESS INSTRUCTOR Ot R06.09 OTHER FORMS OF DYSPNEA 10/16/2017 CYNTHIA, SHIV E FITNESS AND WELLNESS INSTRUCTOR Ot Z72.0 TOBACCO USE 10/29/2017 CYNTHIA SHIV E FITNESS AND WELLNESS INSTRUCTOR Ot J44.9 CHRONIC OBSTRUCTIVE PULMONARY DISEASE, U 10/29/2017 CYNTHIA SHIV E FITNESS AND WELLNESS INSTRUCTOR Ot N64.4 MASTODYNIA 10/29/2017 DEBORAH MARIEINE E FITNESS AND WELLNESS INSTRUCTOR Ot Z72.0 TOBACCO USE 11/24/2017 CITLALI CALVO, LIVAN Wang Ot 782.2 LOCAL SUPRFICIAL SWELLNG 11/24/2017 LIVAN GODWIN MD Ot 782.2 LOCAL SUPRFICIAL SWELLNG 11/24/2017 CITLALI CALVO, LIVAN Wang Ot V72.63 PRE-PROCEDURAL LABORATORY EXAMINATION 11/24/2017 CITLALI CALVO, LIVAN Wang Ot V74.8 SCREEN-BACTERIAL DIS NEC 11/24/2017 FABIO VENCES FITNESS AND WELLNESS INSTRUCTOR Ot V76.12 OTH SCREEN MAMMO-MALIGN NEOPLASM OF [place] 11/24/2017 FABIO VENCES FITNESS AND WELLNESS INSTRUCTOR Ot 733.00 OSTEOPOROSIS NOS 11/24/2017 MELIDA CALVO, BASHAR J Ot R07.9 CHEST PAIN, UNSPECIFIED 11/24/2017 CYNTHIADEBORAHSHIV E FITNESS AND WELLNESS INSTRUCTOR Ot J44.9 CHRONIC OBSTRUCTIVE PULMONARY DISEASE, U 11/24/2017 CYNTHIA, SHIV E FITNESS AND WELLNESS INSTRUCTOR Ot R06.09 OTHER FORMS OF DYSPNEA 11/24/2017 CYNTHIA, SHIV E FITNESS AND WELLNESS INSTRUCTOR Ot Z72.0 TOBACCO USE 11/24/2017 CYNTHIA SHIV E FITNESS AND WELLNESS INSTRUCTOR Ot J44.9 CHRONIC OBSTRUCTIVE PULMONARY DISEASE, U 11/24/2017 CYNTHIA, SHIV E FITNESS AND WELLNESS INSTRUCTOR Ot N64.4 MASTODYNIA 11/24/2017 CYNTHIA, SHIV E FITNESS AND WELLNESS INSTRUCTOR Ot Z72.0 TOBACCO USE 11/24/2017 CYNTHIA SHIV E FITNESS AND WELLNESS INSTRUCTOR Ot J44.9 CHRONIC OBSTRUCTIVE PULMONARY DISEASE, U 11/24/2017 CYNTHIA, SHIV E FITNESS AND WELLNESS INSTRUCTOR Ot R06.09 OTHER FORMS OF DYSPNEA 11/24/2017 CYNTHIA, SHIV E FITNESS AND WELLNESS INSTRUCTOR Ot Z72.0 TOBACCO USE 11/24/2017 CYNTHIA, SHIV E FITNESS AND WELLNESS INSTRUCTOR Ot J44.9 CHRONIC OBSTRUCTIVE PULMONARY DISEASE, U 11/24/2017 CYNTHIA SHIV E FITNESS AND WELLNESS INSTRUCTOR Ot N64.4 MASTODYNIA 11/24/2017 CYNTHIADEBORAHSHIV E FITNESS AND WELLNESS INSTRUCTOR Ot Z72.0 TOBACCO USE 11/25/2017 CITLALI CALVO, LIVAN Wang Ot D12.3 BENIGN NEOPLASM OF TRANSVERSE COLON 11/25/2017 CITLALI CALVO, LIVAN Wang Ot D12.4 BENIGN NEOPLASM OF DESCENDING COLON 11/25/2017 CITLALI CALVO, LIVAN Wang Ot E03.9 HYPOTHYROIDISM, UNSPECIFIED 11/25/2017 CITLALI CALVO, LIVAN Wang Ot F17.210 NICOTINE DEPENDENCE, CIGARETTES, UNCOMPL 11/25/2017 CITLALI CALVO, LIVAN Wang Ot F41.9 ANXIETY DISORDER, UNSPECIFIED 11/25/2017 CITLALI CALVO, LIVAN Wang Ot K20.9 ESOPHAGITIS, UNSPECIFIED 11/25/2017 CITLALI CALVO, LIVAN Wang Ot K25.9 GASTRIC ULCER, UNSP ACUTE OR CHRONIC, 11/25/2017 CITLALI CALVO, LIVAN Wang Ot K29.70 GASTRITIS, UNSPECIFIED, WITHOUT BLEEDING 11/25/2017 CITLALI CALVO, LIVAN Wang Ot K57.30 DVRTCLOS OF LG INT W/O PERFORATION OR AB 11/25/2017 CITLALI CALVO, LIVAN Wang Ot K63.5 POLYP OF COLON 11/25/2017 CITLALI CALVO, LIVAN Wang Ot M81.0 AGE-RELATED OSTEOPOROSIS W/O CURRENT PAT 11/25/2017 CITLALI CALVO, LIVAN Wang Ot Z79.899 OTHER CORRECTION (CURRENT) DRUG THERAPY 11/25/2017 CITLALI CALVO, LIVAN Wang Ot Z80.0 FAMILY HISTORY OF MALIGNANT NEOPLASM OF 11/25/2017 SHIV MARIE FITNESS AND WELLNESS INSTRUCTOR Ot J44.9 CHRONIC OBSTRUCTIVE PULMONARY DISEASE, U 11/25/2017 SHIV MARIE FITNESS AND WELLNESS INSTRUCTOR Ot N64.4 MASTODYNIA 11/25/2017 SHIV MARIE FITNESS AND WELLNESS INSTRUCTOR Ot Z72.0 TOBACCO USE 05/27/2018 SHIV MARIE FITNESS AND WELLNESS INSTRUCTOR Ot F17.210 NICOTINE DEPENDENCE, CIGARETTES, UNCOMPL 05/27/2018 SHIV MARIE FITNESS AND WELLNESS INSTRUCTOR Ot I25.10 ATHSCL HEART DISEASE OF [place] CORONARY 05/27/2018 SHIV MARIE FITNESS AND WELLNESS INSTRUCTOR Ot J30.9 ALLERGIC RHINITIS, UNSPECIFIED 05/27/2018 SHIV MARIE FITNESS AND WELLNESS INSTRUCTOR Ot J44.9 CHRONIC OBSTRUCTIVE PULMONARY DISEASE, U 05/27/2018 SHIV MARIE FITNESS AND WELLNESS INSTRUCTOR Ot R91.8 OTHER NONSPECIFIC ABNORMAL FINDING OF [place] 05/27/2018 SHIV MARIE FITNESS AND WELLNESS INSTRUCTOR Ot Z12.2 ENCNTR SCREEN FOR MALIGNANT NEOPLASM OF 06/04/2018 FABIO VENCES FITNESS AND WELLNESS INSTRUCTOR Ot V76.12 OTH SCREEN MAMMO-MALIGN NEOPLASM OF [place] 06/04/2018 FABIO VENCES A FITNESS AND WELLNESS INSTRUCTOR Ot 733.00 OSTEOPOROSIS NOS 06/04/2018 MELIAD CALVO, YG Cormier Ot R07.9 CHEST PAIN, UNSPECIFIED 06/04/2018 SHIV MARIE FITNESS AND WELLNESS INSTRUCTOR Ot J44.9 CHRONIC OBSTRUCTIVE PULMONARY DISEASE, U 06/04/2018 SHIV MARIE FITNESS AND WELLNESS INSTRUCTOR Ot R06.09 OTHER FORMS OF DYSPNEA 06/04/2018 SHIV MARIE FITNESS AND WELLNESS INSTRUCTOR Ot Z72.0 TOBACCO USE 06/04/2018 SHIV MARIE FITNESS AND WELLNESS INSTRUCTOR Ot J44.9 CHRONIC OBSTRUCTIVE PULMONARY DISEASE, U 06/04/2018 SHIV MARIE FITNESS AND WELLNESS INSTRUCTOR Ot N64.4 MASTODYNIA 06/04/2018 SHIV MARIE FITNESS AND WELLNESS INSTRUCTOR Ot Z72.0 TOBACCO USE 06/04/2018 SHIV MARIE APRN Ot F17.210 NICOTINE DEPENDENCE, CIGARETTES, UNCOMPL 06/04/2018 SHIV MARIE APRN Ot I25.10 ATHSCL HEART DISEASE OF [place] CORONARY 06/04/2018 SHIV MARIE APRN Ot J30.9 ALLERGIC RHINITIS, UNSPECIFIED 06/04/2018 SHIV MARIE APRN Ot J44.9 CHRONIC OBSTRUCTIVE PULMONARY DISEASE, U 06/04/2018 SHIV MARIE APRN Ot R91.8 OTHER NONSPECIFIC ABNORMAL FINDING OF [place] 06/04/2018 SHIV MARIE APRN Ot Z12.2 ENCNTR SCREEN FOR MALIGNANT NEOPLASM OF 06/11/2018 ROGER SORIA DO Ot Z01.818 ENCOUNTER FOR OTHER PREPROCEDURAL EXAMIN 06/11/2018 ROGER SORIA DO Ot Z01.818 ENCOUNTER FOR OTHER PREPROCEDURAL EXAMIN Procedures There is no data. Results There is no data. Encounters ACCT No. Visit Date/Time Discharge Status Pt. Type Provider Facility Loc./Unit Complaint [id number] 06/10/2018 05:25:00 06/10/2018 12:42:00 DIS Outpatient ROGER SORIA DO [facility] PREOP BRONCHOSCOPY [id number] 05/26/2018 09:14:00 05/26/2018 23:59:59 CLS Outpatient SHIV MARIE APRN [facility] RAD COPD,CHRONIC BRONCHITIS,DYSPNEA ON EXERTION [id number] 10/28/2017 14:15:00 10/28/2017 23:59:59 CLS Outpatient SHIV MARIE APRN [facility] RAD J44.9 R06.09 Z72.0 [id number] 10/14/2017 12:51:00 10/14/2017 23:59:59 CLS Outpatient SHIV MARIE APRN [facility] RT J44.9 COPD [id number] 09/14/2017 10:31:00 09/14/2017 14:50:00 DIS Outpatient CITLALI CALVO, LIVAN Wang [facility] ENDO RECTAL BLEEDING/GERD /HX POLYPS/FAMILY HX COLON CA [id number] 09/08/2017 06:06:00 09/08/2017 12:07:00 DIS Outpatient LIVAN GODWIN MD [facility] PREOP COLONOSCOPY/EGD [id number] 01/11/2016 11:44:00 01/11/2016 23:59:59 CLS Outpatient YG MONTEZ MD [facility] CARD CHEST PAIN,UNSPECIFIED TYPE [id number] 09/16/2013 19:34:00 09/19/2013 11:15:00 DIS Inpatient [id number] 07/15/2013 08:58:00 07/15/2013 23:59:59 CLS Outpatient FABIO VENCES APRN [facility] RAD OSTEOPENIA [id number] 07/14/2013 10:33:00 07/14/2013 23:59:59 CLS Outpatient FABIO VENCES APRN [facility] RAD SCREENING [id number] 01/17/2013 10:35:00 02/08/2013 15:02:00 DIS Outpatient LIVAN GODWIN MD [facility] REHAB LEFT POST OPERATIVE WEAKNESS OF FINGERS [id number] 12/04/2012 18:38:00 12/04/2012 19:10:00 DIS Emergency LUCILLE PIÑA MD [facility] ER POST OP WOUND CHECK [id number] 12/03/2012 12:47:00 12/03/2012 18:17:00 DIS Emergency PAUL JOHNSON [facility] ER POST OP ARM SWELLING/ FINGERS NOT MOVING [id number] 11/30/2012 10:31:00 11/30/2012 16:57:00 DIS Outpatient LIVAN GODWIN MD [facility] SDC LUMP LEFT FOREARM [id number] 11/26/2012 10:44:00 11/26/2012 23:59:59 CLS Outpatient LIVAN GODWIN MD [facility] PREOP LUMP LEFT FOREARM [id number] 10/20/2012 10:51:00 10/20/2012 23:59:59 CLS Outpatient LIVAN GODWIN MD [facility] RAD FOREARM MASS [id number] 06/17/2018 07:30:00 PEN Preadmit ROGER SORIA DO [facility] ENDO DYSPNEA/COPD/LUNG NODULE/CHRONIC BRONCHITIS [id number] 05/19/2011 15:34:00 Document Registration
--- OUTSIDE RECORDS SUMMARY | 2018-06-17 06:53 | XMS REPORT | Continuity of Care Document ---
Author Author [facility] Organization [facility] Address Unknown Phone Unavailable Care Team Providers Care Events And Promotions Assistant Name Role Phone HOLLY ASKEW MD PP Insurance Providers Payer Name Policy Number Subscriber Name Relationship Self Pay Tawny Mejia 01 Self / Same As Patient Advance Directives Directive Response Recorded Date Advance Directives N 12/04/12 6:40pm Health Care Power of Drapery Estimator N 12/03/12 1:10pm Organ Donor N 12/03/12 [...] 2011 12:31pm NONE /HPF - Urine Specific [place] May 19, 2011 12:31pm 1.010 L - [...] Date EXC FOREARM SAM DEEP 3 CM/> [id number] MRSA Screen 11/26/12 Encounters Encounter Location Date/Time Registered Emergency Room [facility] 12/04/12 6:38pm Departed Emergency Room [facility] 12:47pm Discharged Inpatient [facility] 3:34pm
--- OUTSIDE RECORDS SUMMARY | 2018-06-17 06:53 | XMS REPORT | Continuity of Care Document ---
Author Author [facility] Organization [facility] Address Unknown Phone Unavailable Care Team Providers Care Network Liaison Name Role Phone HOLLY ASKEW MD PP Insurance Providers Payer Name Policy Number Subscriber Name Relationship Self Pay Tawny Mejia 01 Self / Same As Patient Advance Directives Directive Response Recorded Date Advance Directives N 11/30/12 11:00am Health Care Power of Installation Tech N 11/30/12 11:00am Organ Donor N 11/30/12 11:00am Problems No Known Problems or Medical conditions. Family History History Response Recorded Date/Time Hx Family Cancer Y dad had lukemia 4:00pm Allergies, Adverse Reactions, Alerts Allergen Type Severity Reaction Last Updated No Known Drug Allergies 05/19/11 Medications Medication Dose Units Route Sig Qty Days Acetaminophen/Hydrocodone Bitart (Vicodin 5-500 Tablet) 1 - [...] 2012 11:29am 9 - Basophils # (Auto) May 20, 2011 4:58am 0.1 10^3/uL N 0.0-0.1 Basophils (%) (Auto) May 20, 2011 4:58am 1 % N 0-10 Blood Urea Nitrogen November 26, 2012 11:29am 7 MG/DL N 7-18 C-Reactive Protein May 20, 2011 4:58am 6.2 MG/DL H 0.2-0.9 Calcium Level November 26, 2012 11:29am 10.1 MG/DL N 8.5-10.1 Carbon Dioxide Level November 26, 2012 11:29am 30 MMOL/L N 21-32 Chloride Level November 26, 2012 11:29am 97 MMOL/L L 101-110 Creatinine November 26, 2012 11:29am 0.8 MG/ DL N 0.6-1.3 Eosinophils # (Auto) May 20, 2011 4:58am 0.2 10^3/uL N 0.0-0.3 Eosinophils (%) (Auto) May 20, 2011 4:58am 2 % N 0-10 Glucose Level November 26, 2012 11:29am 110 MG/DL H 74-106 Hematocrit May 20, 2011 4:58am 43 % N 35-52 Hemoglobin May 20, 2011 4:58am 14.7 G/DL N 11.5-16.0 Lipase May 20, 2011 4:58am 67 U/L L 73-393 Lymphocytes # (Auto) May 20, 2011 4:58am 2.0 X 10^3 N 1.0-4.0 Lymphocytes (%) (Auto) May 20, 2011 4:58am 24 % N 12-44 Mean Corpuscular Hemoglobin May 20, 2011 4:58am 32 PG N 25-34 Mean Corpuscular Hemoglobin Concent May 20, 2011 4: 58am 34 G/DL N 32-36 Mean Corpuscular Volume May 20, 2011 4:58am 93 FL N 80-99 Mean Platelet Volume May 20, 2011 4:58am 10.3 FL N 7.4-10.4 Monocytes # (Auto) May 20, 2011 4:58am 0.9 X 10^3 N 0.0-1.0 Monocytes (%) (Auto) May 20, 2011 4:58am 10 % N 0-12 Neutrophils # (Auto) May 20, 2011 4:58am 5.3 X 10^3 N 1.8-7.8 Neutrophils (%) (Auto) May 20, 2011 4:58am 63 % N 42-75 Platelet Count May 20, 2011 4:58am 135 10^3/uL N 130-400 Potassium Level November 26, 2012 11:29am 3.4 MMOL/L L 3.6-5.0 Red Blood Count May 20, 2011 4:58am 4.61 10^6/uL N 4.35-5.85 Red Cell Distribution Width May 20, 2011 4:58am 14.0 % N 10.0-14.5 Sodium Level November 26, [...] 2011 12:31pm NONE /HPF - Urine Specific [place] May 19, 2011 12:31pm 1.010 L - Urine Squamous Epithelial Cells May 19, 2011 12:31pm 2-5 - Urine Urobilinogen May 19, 2011 12:31pm 8 MG/DL H - Urine WBC May 19, 2011 12:31pm RARE /HPF - Urine pH May 19, 2011 12:31pm 7.0 - White Blood Count May 20, 2011 4:58am 8.4 10^3/uL N 4.3-11.0 Estimat Glomerular Filtration Rate November 26, 2012 11:29am > 60 - Urine RBC (Auto) May 19, 2011 12:31pm NEGATIVE - Procedures Procedure Code Date MRSA Screen 11/26/12 Encounters Encounter Location Date/Time Discharged Inpatient [facility] 3:34pm
[2018-06-17] MEDS ORDERED: NS IV 500 ML 500 ML IV PRN (07:06)
[2018-06-17] MEDS ORDERED: NS IV 500 ML 500 ML ONE (07:09)
[2018-06-17] MEDS ORDERED: MIDAZOLAM 2 MG/2 ML (VERSED) VIAL IVP ONE (07:15)
[2018-06-17] MEDS ORDERED: fentaNYL INJECTION 100 MCG/2 ML AMP IVP ONE (07:15)
[2018-06-17 07:25] VITALS: BP 100/67
--- NOTE | 2018-06-17 07:26 | Progress Note-Pre Operative ---
Pre-Operative Progress Note H&P Reviewed The H&P was reviewed, patient examined and no changes noted. Time Seen by Provider: 07:26 Date H&P Reviewed: Jun 17, 2018 Time H&P Reviewed: 07:26 Pre-Operative Diagnosis: lung nodule ROGER SORIA DO Jun 17, 2018 07:26
--- NOTE | 2018-06-17 07:27 | Pre-Op Note & Conscious Sedat ---
Pre-Operative Progress Note H&P Reviewed The H&P was reviewed, patient examined and no changes noted. Date H&P Reviewed: Jun 17, 2018 Time H&P Reviewed: 07:26 Conscious Sedation Pre-Proced Time 07:26 ASA Score 3 For ASA 3 and 4: Consider anesthesia and medical clearance. Also, for patients with a history of failed moderate sedation consider anesthesia. Airway Lungs Heart ASA score ASA 1: a normal healthy patient ASA 2: a patient with a mild systemic disease (mid diabetes, controlled hypertension, obesity ASA 3: a patient with a severe systemic disease that limits activity (angina , COPD, prior Myocardial infarction) ASA 4: a patient with an incapacitating disease that is a constant threat to life (CHF, renal failure) ASA 5: a moribund patient not expected to survive 24 hrs. (ruptured aneurysm) ASA 6: a declared brain patient whose organs are being harvested. For emergent operations, add the letter E after the classification Mallampati Classification Grade 3 Sedation Plan Analgesia, Amnesia, Plan communicated to team members, Discussed options with patient/fam, Discussed risks with patient/fam The patient is an appropriate candidate to undergo the planned procedure, sedation, and anesthesia. The patient immediately re-assessed prior to indication. ROGER SORIA DO Jun 17, 2018 07:27
--- NOTE | 2018-06-17 07:27 | Pulmonary Procedures ---
Pulmonary Procedures Date of Procedure Date of Service: Jun 17, 2018 Bronch Bronchoscopy with bronchoalveolar lavage (BAL), transbronchial washes and, brushes. Preop DX lung mass Postop DX: same Complications: none After informed consent obtained and formal time out pt was sedated using Fentanyl and Versed. Bronchoscope was advanced through the nare and vocal cords. 1% lidocaine was used to anesthetize vocal cords, epiglottis, bimal, and left/right main stem bronchus. An anatomical tour was undertaken down to the segmental bronchi bilaterally. No endobronchial lesions noted. From the RML a bronchoalveolar lavage (BAL), transbronchial washes and, brushes were obtained. Pt tolerated procedure well. No complications noted. Stat CXR is pending. ROGER SORIA DO Jun 17, 2018 07:27
[2018-06-17] MEDS ORDERED: fentaNYL INJECTION 100 MCG/2 ML AMP ONE (07:38)
[2018-06-17] MEDS ORDERED: MIDAZOLAM 2 MG/2 ML (VERSED) VIAL ONE ×3 (07:38)
[2018-06-17 08:20] VITALS: BP 98/67
--- NOTE | 2018-06-17 08:46 | Diagnostic Imaging Report ---
INDICATION: Followup post bronchoscopy Portable chest 8:34 AM There is a pleural-based opacity at the left lateral lung base measuring 4 cm in diameter with a depth of 1.5 cm. Lungs otherwise clear. There is no effusion or pneumothorax. IMPRESSION: Pleural-based appearing mass left lateral lung base, new since 10/28/2017. Dictated by: Dictated on workstation # [id number]
[2018-06-17 09:00] VITALS: BP 95/67
--- NOTE | 2018-06-17 09:05 | Diagnostic Imaging Report ---
Indication: Bronchoscopy. Impression: 17.2 seconds of fluoroscopy and single digital image during the procedure for localization was used by Dr. Capps during bronchoscopy. Dictated by: Dictated on workstation # [id number]
[2018-06-17 09:10] VITALS: BP 95/67
[2018-06-17 10:46] LABS: BF OTHER CELLS 80 %; BODY FLUID APPEARENCE MOD CLDY; BODY FLUID COLOR COLORLESS; BODY FLUID SOURCE BRONCHIAL LAVAGE; LYMPHOCYTES,BODY FLUID 14 %
== END 2018-06-17 09:15 | disposition home or self-care (01) ==
LOC: ENDO 06:47
PROVIDERS: ATTEND Internal Medicine Critical Care Medicine
DX: R91.8 Other nonspecific abnormal finding of lung field (principal); J44.9 Chronic obstructive pulmonary disease, unspecified; F17.210 Nicotine dependence, cigarettes, uncomplicated; J30.9 Allergic rhinitis, unspecified; R06.09 Other forms of dyspnea; Z79.82 Long term (current) use of aspirin; Z79.899 Other long term (current) drug therapy
CPT/HCPCS: 71045; 87015; 87070; 87077; 87101; 87116; 87184; 87205; 87206; 88112; 88305; 88312; 89051; 94640

== ENCOUNTER → 2020-05-25 | Outpatient (CLI) | payer MEDICARE, OTHER ==
[~2020-05-25] MED LIST changes: -CETI10TA20 PO; +CETI10TA49 PO; -TRAZ-189 PO; +TRZ50T PO
--- NOTE | 2020-05-25 12:55 | Consultation - Surgery ---
History of Present Illness History of Present Illness Patient Consulted On(tank/time) 05/25/20 12:26 Time Seen by Provider: 10:18 History of Present Illness Surgery asked to consult regarding Liver CA, Ascites and assess for paracentesis. HPI: Pt is a 65 yo female with advanced liver CA. She has had increasing abdominal distention, fatigue and shortness of breath. Today she complained to me of some chest pressure and stated she has no energy. She relates that she weighed around 144lbs last week and now weighs 170lbs. She also has some portal vein thrombosis and has been on Coumadin. She had an INR drawn last week which was apparently 14 and they had trouble getting repeat labs. She stopped the Coumadin on Thursday and was given some Vitamin K. She has had some increasing abdominal pain; but not really bad. Allergies and Home Medications Allergies Coded Allergies: No Known Drug Allergies (Unverified , 05/19/11) Home Medications Albuterol Sulfate 6.7 Gm Hfa.aer.ad, 2 PUFF IH Q6H PRN for SHORTNESS OF BREATH, (Reported) Aspirin 81 Mg Tablet.dr, 81 MG PO DAILY, (Reported) Atenolol 25 Mg Tablet, 25 MG PO BID, (Reported) Atorvastatin Calcium 40 Mg Tablet, 40 MG PO HS, (Reported) Beta-Carotene(A) W-C & E/Min 1 Each Tablet, 1 TAB PO DAILY, (Reported) Budesonide/Formoterol Fumarate 10.2 Gm Hfa.aer.ad, 2 PUFF IH BID, (Reported) Calcium Carbonate/Vitamin D3 1 Each Tablet, 1 TAB PO DAILY, (Reported) Cetirizine HCl 10 Mg Tablet, 10 MG PO DAILY, (Reported) Fluticasone Propionate 9.9 Ml [place].susp, 1 SPRAY NS DAILY, (Reported) 1 SPRAY EACH NARE DAILY Folic Acid 1 Mg Tablet, 1 MG PO DAILY, (Reported) Furosemide 40 Mg Tablet, 40 MG PO DAILY, (Reported) Gabapentin 300 Mg Capsule, 300 MG PO HS, (Reported) Levothyroxine Sodium 150 Mcg Tablet, 150 MCG PO DAILY, (Reported) Omeprazole 20 Mg Tablet.dr, 20 MG PO DAILY, (Reported) Potassium Chloride 20 Meq Tablet.er, 20 MEQ PO DAILY, (Reported) Sucralfate 1 Gm Tablet, 1 GM PO DAILY, (Reported) Tiotropium [place] 1 Inh Aerp, 1 INH IH DAILY, (Reported) Trazodone HCl 50 Mg Tablet, 100 MG PO HS, (Reported) take 2 (50mg) tabs Vitamin B Complex 1 Each Capsule, 1 EACH PO DAILY, (Reported) Patient Home Medication List Home Medication List Reviewed: Yes Past Ynxumpk-Ympomj-Uncmrb Hx Patient Social History Alcohol Use: Denies Use Smoking Status: Current Everyday Smoker Type Used: Cigarettes 2nd Hand Smoke Exposure: Yes Recent Foreign Travel: No Contact w/Someone Who Travel: No Recent Hopitalizations: No Immunizations Up To Date Tetanus Booster (TDap): Unknown PED Vaccines UTD: No Seasonal Allergies Seasonal Allergies: Yes Surgeries History of Surgeries: Yes (intramuscular lipoma excision lt forearm) Surgeries: Appendectomy, Section, Gallbladder, Hysterectomy Respiratory History of Respiratory Disorde: Yes Respiratory Disorders: Chronic Bronchitis, COPD, Emphysema Cardiovascular History of Cardiac Disorders: No Neurological History of Neurological Disord: No Reproductive System Hx Reproductive Disorders: No Sexually Transmitted Disease: No HIV/AIDS: No Female Reproductive Disorders: Denies HOUSECLEANER History: Hysterectomy Genitourinary History of Genitourinary Disor: No Gastrointestinal History of Gastrointestinal Di: Yes Gastrointestinal Disorders: Gastroesophageal Reflux, Diverticulosis, Polyps Musculoskeletal History of Musculoskeletal Dis: Yes Musculoskeletal Disorders: Osteoporosis, Arthritis Endocrine History of Endocrine Disorders: Yes Endocrine Disorders: Hypothyroidsim HEENT Loss of Vision: Denies Hearing Impairment: Denies Cancer History of Cancer: Yes Cancer: Cervical Psychosocial History of Psychiatric Problem: Yes Behavioral Health Disorders: Anxiety Integumentary History of Skin or Integumenta: No Blood Transfusions History of Blood Disorders: No Family Medical History Significant Family History: No Pertinent Family Hx, Heart Disease, Cancer, Hypertension Family Medial History: Cancer 03 FATHER, Onset:Unknown Family history: Cardiovascular disease 03 FATHER, Onset:Unknown 03 MOTHER, Onset:Unknown Family history: Thyroid disorder 03 MOTHER, Onset:Unknown Tuberculosis 03 FATHER, Onset:Unknown Review of Systems-General Constitutional: malaise, weakness, weight gain EENTM: dental problems; No blurred vision, No double vision, No mouth pain, No mouth swelling, No epistaxis Respiratory: No cough; dyspnea on exertion; No hemoptysis; short of breath Cardiovascular: chest pain, edema; No palpitations Gastrointestinal: abdominal pain; No dysphagia, No hematemesis; jaundice, loss of appetite; No nausea, No vomiting Musculoskeletal: joint pain, joint swelling, muscle pain, muscle stiffness Skin: change in color; No change in hair/nails, No lesions; pruritus Psychiatric/Neurological: Anxiety, Numbness; Denies Seizure, Denies Tremors Other Pt states she bleeds and bruises easily Physical Exam-General Problems Physical Exam Vital Signs Capillary Refill : General Appearance: obese, other (Chronically Ill appearing) Eyes: Bilateral Eye PERRL, Bilateral Eye EOMI HEENT: scleral icterus (R), scleral icterus (L), other (edentulous) Neck: non-tender, supple Respiratory: lungs clear, normal breath sounds, no respiratory distress, no accessory muscle use Cardiovascular: regular rate, rhythm, no murmur Gastrointestinal: soft, distended, tenderness (with palpation), other (no fluid wave) Back: no CVA tenderness, no vertebral tenderness Extremities: no calf tenderness, pedal edema (+3 bilaterally) Neurologic/Psychiatric: flag maker II-XII nml as tested, alert, oriented x 3, depressed affect Skin: warm/dry, jaundice Assessment/Plan Assessment/Plan Assessment/Plan Liver CA Ascites Cirrhosis Portal Vein Thrombosis Pt was supposed to get a paracentesis; however, the US tech only found one large pocket of fluid anteriorly in the midline. This pocket was measured and only holds appx 700ml of fluid, nothing really on the sides and maybe a little above the liver and spleen. I would guess she only has at most 1.5L of fluid. I had a discussion with the pt, her son and her doctor. I don't believe she will get enough benefit (if any) by attempting to drain this fluid. She has much more risk with her INR being so high of a bleed that does not stop and possible damage to intestine as we try and get the needle/catheter in place. I recommended we not do a Paracentesis; everyone agreed. Pt was sent home. CHARLY HIGGINBOTHAM DO May 25, 2020 12:55
--- NOTE | 2020-05-25 16:02 | Diagnostic Imaging Report ---
PROCEDURE: US Abdomen, limited. TECHNIQUE: Multiple realtime grayscale images were obtained over the abdomen in various projections. INDICATION: Ascites. Evaluation of all 4 quadrants of the abdomen was performed to evaluate for ascites. There is a moderate amount of fluid in the midline lower abdomen. Overall quantity of the fluid is insufficient for safe paracentesis. IMPRESSION: Lower abdominal ascites. Dictated by: Dictated on workstation # [id number]
== END ==
LOC: RAD 08:52
PROVIDERS: ATTEND Surgery
DX: R18.8 Other ascites (principal)
CPT/HCPCS: 76705